=== PATIENT | male | born 1950 ===

== ENCOUNTER 2019-01-23 07:22 | Day surgery (SDC) | payer MEDICARE, OTHER ==
[~2019-01-23 07:22] MED LIST: Acetaminophen TAB* 325 MG PO ONE; Buffered Lidocaine 1% SYRIN* 1 ML/SYRINGE INTRADERM ONE; Lactated Ringers 1000 ML Bag* 1,000 ML IV SCH
[2019-01-23] MEDS ORDERED: ceFAZolin 2 GM PREMIX in ORs 2 GM/50 ML BAG IVPB ONE (07:39)
[2019-01-23] MEDS ORDERED: Buffered Lidocaine 1% SYRIN* 1 ML/SYRINGE INTRADERM ONE (07:39)
[2019-01-23] MEDS ORDERED: Acetaminophen TAB* 325 MG ONE (07:39)
[2019-01-23] MEDS ORDERED: Midazolam* 1 MG/ML 2 ML VIAL (2 MG) ONE ×2 (09:30→10:55)
[2019-01-23] MEDS ORDERED: fentaNYL* 50 MCG/ML 2 ML VIAL (100 MCG VIAL) ONE (09:30)
[2019-01-23] MEDS ORDERED: Acetaminophen TAB* 325 MG PO PRN (09:53)
[2019-01-23] MEDS ORDERED: Levalbuterol 1.25MG/0.5ML NEB INH PRN (09:53)
[2019-01-23] MEDS ORDERED: PROCHLORPERAZINE INJ 5 MG/ML 2 ML VIAL IV PRN (09:53)
[2019-01-23] MEDS ORDERED: Ondansetron INJ* 2 MG/ML VIAL IV PRN (09:53)
[2019-01-23] MEDS ORDERED: HYDROcodone/ACETAMIN 5-325 MG* 1 TAB PO PRN (09:53)
[2019-01-23] MEDS ORDERED: fentaNYL* 50 MCG/ML 2 ML VIAL (100 MCG VIAL) IV PRN (09:53)
[2019-01-23] MEDS ORDERED: DiMENhydriNATE IV* 50 MG/ML VIAL IV PUSH PRN (09:53)
[2019-01-23] MEDS ORDERED: Naloxone* 0.4 MG/ML 1 ML VIAL IV PRN (09:53)
[2019-01-23] MEDS ORDERED: Famotidine IV* 10 MG/ML 2 ML (20 mg) ONE (10:30)
[2019-01-23] MEDS ORDERED: Lidocaine 1% INJ* 10 MG/ML 30 ML SDV ONE (10:32)
[2019-01-23] MEDS ORDERED: Lidocaine 2% PF * 5 ML VIAL ONE (11:17)
[2019-01-23] MEDS ORDERED: Propofol* 10 MG/ML 20 ML BTL ONE (11:17)
--- NOTE | 2019-01-23 11:54 | BRIEFOPN ---
Brief Operative Note - Surgery Procedures: OPERATIVE REPORT Pre-op: Lung cancer Post-Op: Same Procedure:Insertion of left chest wall 8F Powerport Surgeon: MD Zachary Asst: none Anes:Local with MAC-Dr. Bella IVF:min EBL:min Specimen: none Drain: none Wound: 1 To PACU
[2019-01-23 12:33] VITALS: BP 157/95
--- NOTE | 2019-01-24 07:50 | OP ---
CC: Dr. Aidee Dorsey * DATE OF OPERATION: 01/23/19 - SDS DATE OF : 52 SURGEON: Nathaniel Sharma MD WALL TAPER: None. ANESTHESIOLOGIST: Dr. Bella. ANESTHESIA: Local with monitored anesthesia care. PRE-OP DIAGNOSIS: Lung cancer. POST-OP DIAGNOSIS: Lung cancer. OPERATIVE PROCEDURE: Insertion of an 8-[place] left chest wall power port. ESTIMATED BLOOD LOSS: Minimal. SPECIMENS: None. COMPLICATIONS: None. WOUND CLASSIFICATION: I. DRAINS: None. DESCRIPTION OF PROCEDURE: Written and informed consent was obtained, the left chest was marked with indelible ink and preoperative antibiotics were administered. The patient was taken to the operating room and placed in a supine position where sequential compression devices were placed on the lower extremities. The right and left neck and chest were prepped and draped in usual sterile fashion. Time-out verification was completed. The patient was placed in Trendelenburg position. 1% lidocaine with epinephrine was infiltrated along the left infraclavicular area to midline, an 18-gauge Cook needle was used to puncture the subclavian vein after passing it underneath the clavicle 3 or 4 times without initial blood return. Once this was complete, the guidewire was inserted. Once I did puncture the subclavian vein, however, the guidewire was inserted without difficulty, was confirmed to be in the superior vena cava by fluoroscopy. Next, a transverse incision was made on the anterior left chest wall several centimeters below the initial puncture site and a subcutaneous pocket was made made inferior to this, large enough to permit the port to be placed. A catheter was then tunneled from the pocket site to the puncture site, using the sheath peel away dilator system, the catheter was inserted into the superior vena cava at the junction with the right atrium. The catheter was cut to the appropriate length, attached to the port which was then placed in the subcutaneous pocket and sutured with two separate 2-0 Prolene sutures to the anterior fascia of the muscle. The catheter withdrew blood and flushed well without difficulty. It was subsequently flushed with heparin solution. Hemostasis was assured. The pocket site was closed with 3-0 and 4-0 Vicryl suture. This initial puncture site was closed with single 4-0 Vicryl suture. Steri-Strips and sterile dressings were applied. The patient tolerated the procedure well, was taken to the recovery room in stable condition. Postprocedural chest x-ray showed the catheter to be in good position without pneumothorax. [id number]/[facility] #: [id number] MARGOTH
== END 2019-01-23 13:08 | disposition home or self-care (01) ==
LOC: OR 07:22
PROVIDERS: ATTEND Surgery
DX: C34.90 Malignant neoplasm of unspecified part of unspecified bronchus or lung (principal); Z87.891 Personal history of nicotine dependence; J44.9 Chronic obstructive pulmonary disease, unspecified; I10 Essential (primary) hypertension
CPT/HCPCS: 71045; 76000; A9270-GY; C1788; J0690; J1642; J2250; J2704; J3010